=== PATIENT | male | born 1975 | race Caucasian/White ===

== ENCOUNTER 2016-11-02 02:21 | Emergency (ER) | payer OTHER ==
[~2016-11-02] VITALS: Ht 175.3 cm; Wt 129.6 kg
[~2016-11-02 02:21] MED LIST: AUGMENTIN875 MG PO; BENADRYL50 MG PO; CYCLOBENZAPRINE10 MG PO; FLEXERIL10 MG PO; HYDROCODON-ACE1 EAC9 PO; IBUPROFEN600 MG PO; MOBIC7.5 MG PO; NAPROSYN500 MG PO; PERCOCET 5/31 TABLET PO; PREDNISONE10 M1 PO; PREDNISONE10 MG PO; PREDNISONE20 MG PO; PROMETHAZINE HC25 M1 PO; VALIUM5 MG PO
[2016-11-02 02:45] LABS: ADD MIUA? NO; BILIRUBIN NEGATIVE; BLOOD NEGATIVE; COLOR YELLOW ((YELLOW)); GLUCOSE (STRIP) NEGATIVE; KETONES NEGATIVE; LEUKOCYTES NEGATIVE; NITRITE NEGATIVE; PROTEIN (STRIP) 30; SPECIFIC GRAVITY 1.029 (1.000-1.030); UCUL ADDED? NO
[2016-11-02 03:18] VITALS: BP 139/78
== END 2016-11-02 03:24 | disposition left against medical advice (07) ==
LOC: EME 02:21
PROVIDERS: Emergency Medicine
DX: R10.9 Unspecified abdominal pain (principal); R11.0 Nausea; R82.99 Other abnormal findings in urine; N20.0 Calculus of kidney; Z87.442 Personal history of urinary calculi; F17.200 Nicotine dependence, unspecified, uncomplicated
CPT/HCPCS: 74176; 81003; 99281; 99283